=== PATIENT | female | born 2000 | race Two or more races ===

== ENCOUNTER 2023-12-18 16:53 | Emergency (ER) | payer SELFPAY ==
[2023-12-18 18:01] LABS: Specific Gravity 1.012 (1.005-1.030)
[2023-12-18 18:09] LABS: Absolute Basophils 0.1 K/uL (0-0.5); Absolute Eosinophils 0.2 K/uL (0-0.5); Absolute Lymphocytes (CBC) 2.3 K/uL (0.7-4.9); Absolute Monocytes 0.6 K/uL (0.1-1.3); Absolute Neutrophil 5.8 K/uL (1.8-8.0); Basophils % 1.1 % (0-1.3); Eosinophils % 2.4 % (0-4.4); Hematocrit 40.8 % (36.0-45.0); Hemoglobin 13.6 g/dL (12.0-15.0); Lymphocytes % 25.5 % (15.3-44.8); MCH 30.6 pg (27.0-35.0); MCHC 33.4 g/dL (32.0-36.0); MCV 91.6 fL (80-100); MPV 7.2 fL (7.6-11.3); Monocytes % 6.2 % (3.3-12.3); Neutrophils % 64.8 % (41.7-73.7); Nucleated Red Blood Cells % 0.2 % (0-0); Platelets 384 thou/uL (152-406); RBC Red Blood Cell Count 4.46 M/uL (3.86-4.86); Red Cell Distribution Width 14.1 % (12.1-15.2)
[2023-12-18 18:11] LABS: ALT/SGPT 22 U/L (13-56); AST/SGOT 19 U/L (15-37); Albumin 4.2 g/dL (3.4-5.0); Albumin/Globulin Ratio 1.1 (1.1-1.8); Alkaline Phosphatase 56 U/L (45-117); Anion Gap 11.5 mEq/L (5.0-15.0); BUN Blood Urea Nitrogen 10 mg/dL (7-18); Bicarbonate 19 mEq/L (21-32); Bilirubin Total 0.5 mg/dL (0.2-1.0); Glomerular Filtration Rate 125 ml/min (=/>90); Glucose Level 96 mg/dL (74-106); Potassium 3.5 mEq/L (3.5-5.1); Protein, Total 8.2 g/dL (6.4-8.2); Sodium Level 141 mEq/L (136-145)
[2023-12-18 18:11] LABS: Barbiturates NEGATIVE (NEGATIVE); Benzodiazepines NEGATIVE (NEGATIVE); Cocaine NEGATIVE (NEGATIVE); METHAMPHETAM NEGATIVE (NEGATIVE); Methadone NEGATIVE (NEGATIVE); Opiates NEGATIVE (NEGATIVE); Phencyclidine NEGATIVE (NEGATIVE); THC Cannibis NEGATIVE (NEGATIVE)
[2023-12-18 18:12] LABS: Bilirubin Direct < 0.2 mg/dL (0-0.2); Bilirubin Indirect, Calculated 0.3 mg/dL (0.2-0.8)
[2023-12-18 18:21] LABS: PT Prothrombin Time 10.6 SECONDS (9.4-12.5); PTT, Activated Partial Thromb 31.6 SECONDS (24.3-36.9); Protime INR 0.94
[2023-12-18] MEDS ORDERED: ONDANSETRON 4 MG/2 ML VIAL ONE (18:48)
[2023-12-18] MEDS ORDERED: NA CHLORIDE 0.9% 1,000 ML ONE (18:49)
--- NOTE | 2023-12-18 20:09 | EDPHYS ---
Physician Documentation [facility] Name: Wang Crespo Age: 23 yrs Sex: Female : 2000 Arrival Date: 12/18/2023 Time: 16:53 Bed 13 Private MD: ED Physician Terrence Ohara HPI: 12/17 18:05 This 23 yrs old [place] Female presents to ER via Wheelchair with complaints of ETOH pm1 Abuse. 18:06 The patient presents to the emergency department with excessive alcohol consumption. pm1 Context: the OD/poisoning occurred at [place]. Associated signs and symptoms: Pertinent positives: nausea, vomiting. Severity of symptoms: in the emergency department the symptoms are unchanged. The patient has experienced a previous episode. The patient has not recently seen a physician. She has been on vacation with her fiancee and was at the beach. She drank 4 buzzballs. She typically drinks 2-3. 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 - Infectious Disease History:: Denies. - Social history:: Smoking status: Patient reports the use of cigarette tobacco products, smokes one-half pack cigarettes per day, Patient uses alcohol, only on a social basis. ROS: 18:06 Constitutional: Negative for fever, chills, and weight loss, Cardiovascular: Negative pm1 for chest pain, palpitations, and edema, Respiratory: Negative for shortness of breath, cough, wheezing, and pleuritic chest pain, 18:06 Back: Negative for injury and pain, MS/Extremity: Negative for injury and deformity, Skin: Negative for injury, rash, and discoloration, Neuro: Negative for headache, weakness, numbness, tingling, and seizure, 18:06 Abdomen/GI: Positive for nausea and vomiting, Negative for abdominal pain, diarrhea, 18:06 All other systems are negative, Exam: 18:06 Constitutional: This is a well developed, well nourished patient who is awake, alert, pm1 and in no acute distress. Head/Face: Normocephalic, atraumatic. 18:06 Skin: Warm, dry with normal turgor. Normal color with no rashes, no lesions, and no evidence of cellulitis. 18:06 Cardiovascular: Exam negative for acute changes, 18:06 Respiratory: Exam negative for acute changes, the patient does not display signs of respiratory distress, 18:06 Abdomen/GI: Exam negative for acute changes, Inspection: abdomen appears normal, Palpation: abdomen is soft and non-tender, in all quadrants, 18:06 Neuro: Exam negative for acute changes, Vital Signs: 17:12 BP 105 / 73; Pulse 90; Resp 18; Temp 98; Pulse Ox 98% ; Weight 58.97 kg; Height 5 ft. 9 db in. ; 18:55 BP 101 / 67; Pulse 75; Resp 16; Pulse Ox 100% on R/A; iw 19:05 BP 101 / 67; Pulse 76; Resp 18; Pulse Ox 99% on R/A; kj2 20:05 BP 103 / 64; Pulse 88; Resp 18; Temp 97.9; Pulse Ox 100% on R/A; kj2 17:12 Body Mass Index 19.20 (58.97 kg, 175.26 cm) db MDM: 17:13 Patient medically screened. pm1 17:17 Data reviewed: vital signs. pm1 20:05 Differential diagnosis: ETOH intoxication, drug abuse, dehydration, heat exposure. pm1 20:05 Consideration of Admission/Observation if heat exhaustion with abnormal kidney function pm1 present would have considered admission. 20:05 I considered the following discharge prescriptions or medication management in the pm1 emergency department Medications were administered in the Emergency Department. See MAR. 20:05 Historians other than the Patient: Spouse/Significant Other: ericke. Care pm1 significantly affected by the following Social Determinants of Health: Misuse of alcohol and/or drugs. 20:05 Counseling: I had a detailed discussion with the patient and/or guardian regarding the pm1 historical points, exam findings, and any diagnostic results supporting the discharge/admit diagnosis, lab results, the need for outpatient follow up, to return to the emergency department if symptoms worsen or persist or if there are any questions or concerns that arise at home. 20:05 ED course: The patient feels better and wants to go home. Her fiancee is in the room pm1 and able to take her home. 12/17 17:17 Order name: Acetaminophen; Complete Time: 18:52 pm1 12/17 17:17 Order name: Basic Metabolic Panel; Complete Time: 18:52 pm1 12/17 17:17 Order name: CBC with Diff; Complete Time: 18:52 pm1 12/17 17:17 Order name: ETOH Level; Complete Time: 18:52 pm1 12/17 17:17 Order name: Hepatic Function; Complete Time: 18:52 pm1 12/17 17:17 Order name: PT-INR; Complete Time: 18:52 pm12/17 17:17 Order name: Test, Urine; Complete Time: 18:05 pm12/17 17:17 Order name: Ptt, Activated; Complete Time: 18:52 pm1 12/17 17:17 Order name: Salicylate; Complete Time: 18:52 pm12/17 17:17 Order name: Urine Drug Screen; Complete Time: 18:52 pm1 12/17 17:17 Order name: EKG - Nurse/Tech pm1 12/17 17:17 Order name: IV Saline Lock; Complete Time: 17:46 pm12/17 17:17 Order name: Labs collected and sent; Complete Time: 17:46 pm1 Administered Medications: 18:54 Drug: NS 0.9% IV 1000 ml IV at 1000 ml once Route: IV; Rate: 1000 ml; Site: right wrist;iw 19:55 Follow up: IV Status: Completed infusion; IV Intake: 1000ml kj2 18:54 Drug: Ondansetron IVP 4 mg IVP once; over 2 minutes Route: IVP; Site: right wrist; iw 19:20 Follow up: Response: No adverse reaction kj2 Disposition Summary: 12/18/23 20:08 Discharge Ordered Notes: Location: Home pm1 Problem: new pm1 Symptoms: have improved pm1 Condition: Stable pm1 Diagnosis - Alcohol abuse pm1 Followup: pm1 - With: Emergency Department - When: As needed - Reason: Worsening of condition Followup: pm1 - With: Private Physician - When: 2 - 3 days - Reason: Recheck today's complaints, Continuance of care, Re-evaluation by your physician Discharge Instructions: - Discharge Summary Sheet pm1 - Finding Treatment for Addiction pm1 - Alcohol Abuse and Nutrition pm1 - Alcohol Abuse and Dependence Information, Adult pm1 Forms: - Medication Reconciliation Form pm1 - Antibiotic Education pm1 - Prescription Opioid Use pm1 - Patient Portal Instructions pm1 - Leadership Thank You Letter pm1 Signatures: Dispatcher [employer] Concepcion Palma RN RN iw Boaz Shin, GAURANG ORTHODONTIC TREATMENT COORDINATOR pm1 Ana Grier RN RN db Kate Cabezas RN kj2 Corrections: (The following items were deleted from the chart) 17:17 17:16 Allergies: Latex, Natural Rubber; db db 18:54 17:17 Suicide Screening ([place]) ordered. pm1 iw
--- NOTE | 2023-12-18 20:09 | ER ---
Nurse's Notes [facility] Name: Wang Crespo Age: 23 yrs Sex: Female : 2000 Arrival Date: 12/18/2023 Time: 16:53 Bed 13 Private MD: Diagnosis: Alcohol abuse Presentation: 12/17 17:12 Chief complaint: Patient states[place] PT HAD 2 15% WINE COOLERS AND db IS NOW FEELING SICK. Coronavirus screen: Client denies travel out of the [place] in the last 14 days. At this time, the client does not indicate any symptoms associated with coronavirus-19. Ebola Screen: Patient negative for fever greater than or equal to 101.5 degrees Fahrenheit, and additional compatible Ebola Virus Disease symptoms Patient denies exposure to infectious person. Patient denies travel to an Ebola-affected area in the 21 days before illness onset. No symptoms or risks identified at this time. Initial Sepsis Screen: Does the patient meet any 2 criteria? No. Patient's initial sepsis screen is negative. Does the patient have a suspected source of infection? No. Patient's initial sepsis screen is negative. Risk Assessment: Do you want to hurt yourself or someone else? Patient reports no desire to harm self or others. Onset of symptoms was December 18, 2023. 17:12 Method Of Arrival: Wheelchair db 17:12 Acuity: CARMEL 3 db Triage Assessment: 17:12 General: Appears comfortable, Behavior is cooperative, crying. Pain: Denies pain. db Neuro: Level of Consciousness is awake, alert, obeys commands, Oriented to person, place, time, situation. Respiratory: Airway is patent Respiratory effort is even, unlabored, Respiratory pattern is regular, symmetrical. 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 - Infectious Disease History:: Denies. - Social history:: Smoking status: Patient reports the use of cigarette tobacco products, smokes one-half pack cigarettes per day, Patient uses alcohol, only on a social basis. Screenin:55 [facility] ED Fall Risk Assessment (Adult) History of falling in the last 3 months, iw including since admission No falls in past 3 months (0 pts) Confusion or Disorientation No (0 pts) Intoxicated or Sedated Yes (3 pts) Impaired Gait No (0 pts) Mobility Assist Device Used No (0 pt) Altered Elimination No (0 pt) Score/Fall Risk Level 3 or more points = High Risk Oriented to surroundings, Maintained a safe environment. Abuse screen: Denies injuries from another. Nutritional screening: No deficits noted. Tuberculosis screening: No symptoms or risk factors identified. Assessment: 18:54 General: Appears in no apparent distress. Behavior is calm, cooperative. Pain: Denies iw pain. Neuro: Level of Consciousness is awake, alert, obeys commands, Oriented to person, place, time, situation, Moves all extremities. Full function. Cardiovascular: Patient's skin is warm and dry. GI: Abdomen is non-distended, Reports nausea. Derm: Skin is intact, is healthy with good turgor. Musculoskeletal: Range of motion: intact in all extremities. 19:05 Reassessment: Patient appears in no apparent distress at this time. Patient and/or kj2 family updated on plan of care and expected duration. Pain level reassessed. Patient is alert, oriented x 3, equal unlabored respirations, skin warm/dry/pink. 20:05 Reassessment: Patient appears in no apparent distress at this time. Patient and/or kj2 family updated on plan of care and expected duration. Pain level reassessed. Patient is alert, oriented x 3, equal unlabored respirations, skin warm/dry/pink. Psych: 19:00 [place] Suicide Severity Screening: In the past month, have you wished you were kj2 or wished you could go to sleep and not wake up? Patient responds "No." "In the past month, have you actually had any thoughts of killing yourself?" Patient responds "no." "In your lifetime, have you ever done anything, started to do anything, or prepared to do anything to end your life?" Patient responds "no.". Subjective: Patient's mood is calm. Objective: calm. Interventions: Searched person for dangerous items. 20:18 Safety Checks: Door is open. Visitors are present. Patient uses. 2 20:58 Commitment: Patient will be a voluntary commitment. kj2 Vital Signs: 17:12 BP 105 / 73; Pulse 90; Resp 18; Temp 98; Pulse Ox 98% ; Weight 58.97 kg; Height 5 ft. 9 db in. ; 18:55 BP 101 / 67; Pulse 75; Resp 16; Pulse Ox 100% on R/A; iw 19:05 BP 101 / 67; Pulse 76; Resp 18; Pulse Ox 99% on R/A; kj2 20:05 BP 103 / 64; Pulse 88; Resp 18; Temp 97.9; Pulse Ox 100% on R/A; kj2 17:12 Body Mass Index 19.20 (58.97 kg, 175.26 cm) db ED Course: 16:54 Patient arrived in ED. mr 17:10 Boaz Shin, GAURANG is PHCP. pm1 17:10 Terrence Ohara MD is Attending Physician. pm1 17:12 Arm band placed on Patient placed in waiting room. db 17:14 Triage completed. db 17:46 Acetaminophen Sent. bc6 17:46 Basic Metabolic Panel Sent. bc6 17:46 CBC with Diff Sent. bc6 17:46 ETOH Level Sent. bc6 17:46 Hepatic Function Sent. bc6 17:46 PT-INR Sent. bc6 17:46 Test, Urine Sent. bc6 17:46 Ptt, Activated Sent. bc6 17:46 Salicylate Sent. bc6 17:46 Urine Drug Screen Sent. bc6 17:46 Initial lab(s) drawn, by ma, sent to lab. Inserted saline lock: 20 gauge in right hand, bc6 using aseptic technique. Blood collected. Flushed with 10 mL NS. 17:52 Urine collected: clean catch specimen, clear. bc6 19:21 Kate Cabezas, RN is Primary Nurse. kj2 20:15 Patient has correct armband on for positive identification. Bed in low position. Call kj2 light in reach. Side rails up X 1. Adult w/ patient. Provided Education on: disease process. 20:19 No provider procedures requiring assistance completed. kj2 20:59 IV discontinued, intact, bleeding controlled, No redness/swelling at site. Pressure kj2 dressing applied. Administered Medications: 18:54 Drug: NS 0.9% IV 1000 ml IV at 1000 ml once Route: IV; Rate: 1000 ml; Site: right wrist;iw 19:55 Follow up: IV Status: Completed infusion; IV Intake: 1000ml kj2 18:54 Drug: Ondansetron IVP 4 mg IVP once; over 2 minutes Route: IVP; Site: right wrist; 19:20 Follow up: Response: No adverse reaction kj2 Medication: 20:15 VIS not applicable for this client. kj2 Intake: 19:55 IV: 1000ml; Total: 1000ml. kj2 Outcome: 20:08 Discharge ordered by . pm1 20:59 Discharged to home ambulatory, with family, kj2 20:59 Condition: stable 20:59 Discharge instructions given to patient, family, Instructed on discharge instructions, follow up and referral plans. Demonstrated understanding of instructions, follow-up care, 20:59 Patient left the ED. kj2 Signatures: Lupe Lovell, Armando Reg mr Concepcion Baires, RN RN iw Boaz Shin, GAURANG FIRE ENGINE OPERATOR pm1 Ana Grier RN RN db Maliha Ward bc6 Kate Cabezas RN RN kj2 Corrections: (The following items were deleted from the chart) 17:17 17:12 BP 105 / 73; Pulse 90bpm; Resp 18bpm; Pulse Ox 98%; Temp 98F; db db 17:17 17:16 Allergies: Latex, Natural Rubber; db db
[2023-12-18 21:44] VITALS: BP 103/64; TEMP 97.9; O2SAT 100
== END 2023-12-18 20:59 | disposition home or self-care (01) ==
LOC: ER 16:53
DX: F10.10 Alcohol abuse, uncomplicated (principal)
CPT/HCPCS: 36415; 80048; 80076; 80143; 80179; 80307; 81025; 82077; 85025; 85610; 85730; 96361; 96374; 99285; J2405; J7030